=== PATIENT | female | born 1965 | race Caucasian/White ===

== ENCOUNTER 2018-07-04 05:35 | Observation (INO) | payer BC ==
[2018-07-04] VITALS (9 sets, daily range): BP systolic 107–126; BP diastolic 46–67; PULSE 76–102; TEMP 97.9–99.4
[~2018-07-04] VITALS: Ht 172.7 cm; Wt 93.2 kg
--- NOTE | 2018-07-04 07:30 | NUR ---
Resting in bed. Minimal complaints of abdominal pain. NPO. IV fluids infusing. at bedside.
[2018-07-04] MEDS ORDERED: TENORMIN 2525 MG/TAB (08:23)
--- NOTE | 2018-07-04 10:00 | NUR ---
Dr. Fernandez saw patient. Plan for surgery today.
--- NOTE | 2018-07-04 11:40 | NUR ---
To surgery per bed with OR staff.
--- NOTE | 2018-07-04 13:25 | NUR ---
Received patient from PACU per bed. VSS. No c/o pain or nausea.
--- NOTE | 2018-07-04 15:19 | NUR ---
Plan to return homw with [facility] in [facility], Assess: Patient reports that she recent fell on the ice and is using a Leg immobilzer, rochelle and a hand brace. Patient has a follow-up juan with PCP on Jul 13, Dr. Haji. Declines the need for homehealth. Patient's will transport home. Reports they have DPOA not with them but has a living will. Action: Educated about resources and no additional needs identifed.
--- NOTE | 2018-07-04 18:00 | NUR ---
Denied need for pain medication. VSS. Taking fluids well.
[2018-07-05 00:40] VITALS: BP 111/57; PULSE 106; TEMP 98.5
[2018-07-05 03:43] VITALS: BP 114/52; PULSE 101; TEMP 98.2
--- NOTE | 2018-07-05 06:15 | NUR ---
PT IN BED. NO c/o PAIN OR N/V. 3 BANDAIDES INTACT TO ABDOMEN LAP SITES.
[2018-07-05 06:42] LABS: HEMOGLOBIN 11.7 g/dl (12.5-16.0); MEAN CELL VOLUME 91 fl (80.0-100.0); MEAN CORPUSCULAR HEMOGLOBIN 30 pg (27.0-31.0); MEAN CORPUSCULAR HGB CONC 33 g/dl (33.0-37.0); MEAN PLATELET VOLUME 10.2 fl (7.4-10.4); PLATELET COUNT 248 K/mm3 (130-400); RED BLOOD COUNT 3.92 M/mm3 (4.10-5.30); REDCELL DISTRIBUTION WIDTH-CV 13.4 % (11.5-14.5)
[2018-07-05 06:51] LABS: HEMATOCRIT 35.5 % (37.0-47.0)
[2018-07-05 06:52] LABS: CREATININE, serum 0.83 mg/dL (0.52-1.25); POTASSIUM 3.7 mmol/L (3.4-5.0)
[2018-07-05 07:10] LABS: BAND 3 % (0-10); LYMPHOCYTE 20 % (20.0-51.0); NEUTROPHILS 72 % (42.0-75.2); PLATELET ESTIMATE NORMAL (NORMAL)
[2018-07-05 08:10] VITALS: BP 123/50; PULSE 79; TEMP 98.8
[2018-07-05 11:09] VITALS: BP 106/64; PULSE 80; TEMP 98.2
--- NOTE | 2018-07-05 14:30 | NUR ---
Minimal complaints of incisional pain. Afebrile. Dr. Fernandez saw patient. Prescriptions given. Dismissed to home with family.
== END 2018-07-05 14:30 | disposition home or self-care (01) ==
LOC: SURG 05:35
PROVIDERS: ADMIT Surgery
DX: K35.80 Unspecified acute appendicitis (principal); I10 Essential (primary) hypertension; Z79.899 Other long term (current) drug therapy; Z85.828 Personal history of other malignant neoplasm of skin
CPT/HCPCS: G0378; J0330; J1100; J1885; J2405; J2543; J2704; J2710; J3010; J7120

== ENCOUNTER → 2019-11-05 | Outpatient (CLI) | payer BC ==
[2019-11-05] VITALS (10 sets, daily range): BP systolic 114–149; BP diastolic 65–90; PULSE 63–72
[~2019-11-05] VITALS: Ht 172.7 cm; Wt 97.8 kg
[~2019-11-05] MED LIST: TENORMIN 2525 MG/TAB; TENORMIN 2525 MG/TAB PO
[2019-11-05 12:50] LABS: INR 1.1 (0.8-3.0); PROTHROMBIN TIME 12.4 SECONDS (9.7-12.8)
--- NOTE | 2019-11-05 13:15 | NUR ---
Pt to ct per wheelchair. Pt in supine position on ct table. Monitors applied.
--- NOTE | 2019-11-05 13:32 | NUR ---
Specimens obtained by Dr Thorne and placed in formalin. Specimen labeled.
== END ==
LOC: COL.RAD 12:00
PROVIDERS: Family Medicine
DX: R74.8 Abnormal levels of other serum enzymes (principal)
CPT/HCPCS: 32109